=== PATIENT | female | born 1990 | race Caucasian/White ===

== ENCOUNTER 2024-02-28 15:13 | Emergency (ER) | payer BC ==
[2024-02-28] MEDS ORDERED: Zofran 4 MG/2 ML VIAL ONE (15:59)
[2024-02-28] MEDS ORDERED: Sodium Chloride 0.9% 1000 ML 1,000 ML ONE (15:59)
[2024-02-28] MEDS: Sodium Chloride 0.9% 1000 ML 1,000 ML IV STA (16:01)
[2024-02-28] MEDS: Zofran 4 MG/2 ML VIAL IV ONE (16:01)
--- NOTE | 2024-02-28 16:05 | ERPHSYRPT ---
- History of Present Illness Time Seen by Provider: 02/28/24 15:58 Source: patient Exam Limitations: no limitations Patient Subjective Stated Complaint: PT states "I had my daughter here last night for the same thing and I started to vomit and have diarrhea since 11 pm last night." Triage Nursing Assessment: Pt presented alert and oriented X 3, skin pwd. Pt ambulates iwth an upright steady gait, able to speak in clear full sentences. PT vomiting currently. Timing/Duration: today Severity: mild Associated Symptoms: denies symptoms Allergies/Adverse Reactions: No Known Drug Allergies Allergy (Verified 02/28/24 15:28) Home Medications: Vit,Calc78/Iron/Folic [Prenatabs FA Tablet] 1 each PO DAILY 02/28/24 [History] Hx Tetanus, Diphtheria Vaccination/Date Given: No Hx Influenza Vaccination/Date Given: No Hx Pneumococcal Vaccination/Date Given: No Immunizations Up to Date: No Travel Risk - International Travel Have you traveled outside of the country in past 3 weeks: No - Emerging Infectious Disease Are you exhibiting symptoms associated with any current EIDs: Yes Symptoms: Vomitting - Review of Systems Constitutional: No Symptoms Eyes: No Symptoms Ears, Nose, & Throat: No Symptoms Respiratory: Cough Cardiac: No Symptoms Abdominal/Gastrointestinal: No Symptoms Genitourinary Symptoms: No Symptoms Musculoskeletal: No Symptoms - Past Medical History Pertinent Past Medical History: No Neurological History: No Pertinent History ENT History: No Pertinent History Cardiac History: No Pertinent History Respiratory History: No Pertinent History Endocrine Medical History: No Pertinent History Musculoskeletal History: No Pertinent History GI Medical History: No Pertinent History History: No Pertinent History Psycho-Social History: No Pertinent History Female Reproductive Disorders: No Pertinent History - Past Surgical History Past Surgical History: Yes Other Surgical History: right leg - Female History Hx Last Menstrual Period: 09/2023 Hx Now: Yes Gestational Age: 20 weeks - Social History Smoking Status: Never smoker Exposure to second hand smoke: No Drug Use: none - Social Determinants of Health Will the patient participate in the screening: Declined to provide - Nursing Vital Signs Nursing Vital Signs: Initial Vital Signs Temperature 97.8 F 02/28/24 15:22 Pulse Rate 102 H 02/28/24 15:22 Respiratory Rate 20 02/28/24 15:22 Blood Pressure 117/55 02/28/24 15:22 O2 Sat by Pulse Oximetry 100 02/28/24 15:22 Pain Scale Pain Intensity 0 - Physical Exam General Appearance: no apparent distress Eye Exam: PERRL/EOMI Ears, Nose, Throat Exam: normal ENT inspection Neck Exam: normal inspection, non-tender Respiratory Exam: normal breath sounds, chest tenderness Cardiovascular Exam: regular rate/rhythm Gastrointestinal/Abdomen Exam: soft, normal bowel sounds SpO2: 100 Ordered Tests: Active Orders 24 hr Category Date Time Status IV Insertion STAT Care 02/28/24 15:38 Active CMP Stat Lab 02/28/24 16:02 Completed Medication Summary Discontinued Medications Generic Name Dose Route Start Last Admin Trade Name Rishi PRN Reason Stop Dose Admin Sodium Chloride 1,000 mls @ 999 mls/hr 02/28/24 15:57 02/28/24 16:01 Sodium Chloride 0.9% 1000 Ml IV 02/28/24 16:57 999 mls/hr .Q1H1M STA Administration Sodium Chloride Confirm 02/28/24 15:59 Sodium Chloride 0.9% 1000 Ml Administered 02/28/24 16:00 Dose 1,000 mls @ ud .ROUTE .STK-MED ONE Ondansetron HCl 4 mg 02/28/24 15:57 02/28/24 16:01 Ondansetron Hcl 4 Mg/2 Ml Vial IV 02/28/24 15:58 4 mg STAT ONE Administration Ondansetron HCl Confirm 02/28/24 15:59 Ondansetron Hcl 4 Mg/2 Ml Vial Administered 02/28/24 16:00 Dose 4 mg .ROUTE .STK-MED ONE Lab/Rad Data: Laboratory Result Diagrams 02/28/24 16:02 Laboratory Results 02/28/24 Range/Units 16:02 Sodium 135 (135-145) mmol/L Potassium 3.6 (3.5-5.1) mmol/L Chloride 105 (98-107) mmol/L Carbon Dioxide 19 L (22-30) mmol/L Anion Gap 15.1 H (5-15) MEQ/L BUN 12 (7-17) mg/dL Creatinine 0.64 (0.52-1.04) mg/dL Estimated GFR 118.9 ML/MIN Glucose 97 (74-106) mg/dL Calcium 9.7 (8.4-10.2) mg/dL Total Bilirubin 1.00 (0.2-1.3) mg/dL AST 27 (14-36) U/L ALT 19 (0-35) U/L Alkaline Phosphatase 60 (38-126) U/L Serum Total Protein 7.5 (6.3-8.2) g/dL Albumin 4.3 (3.5-5.0) g/dL - Progress Progress Note: 02/28/24 17:06 Cough patient was seen and evaluated for nausea and vomiting she was given IV fluids and IV antiemetics electrolytes were obtained, these were reviewed. Louisa ent was updated with the results she was informed of the need to maintain a clear liquid diet and advance slowly she will be discharged home with Zofran. She is to follow-up with her primary care provider and [facility], she denies any other complaints at the time of discharge and feels comfortable going home Medical Desision Making - Discussion of managment Agreed on:: need for follow-up Will see patient: In office - Departure Departure Disposition: Home Clinical Impression: Nausea, Dehydration Condition: Stable Critical Care Time: No Referrals: DOCTOR,NO FAMILY [Primary Care Provider] - Follow up/PCP as directed Prescriptions: Ondansetron ODT 4 MG [Zofran Odt 4 mg] 4 mg PO Q6H PRN PRN #10 tablet PRN Reason: Vomiting
[2024-02-28 16:53] LABS: ALBUMIN 4.3 g/dL (3.5-5.0); ANION GAP 15.1 MEQ/L (5-15); Calcium 9.7 mg/dL (8.4-10.2); Creatinine 1 0.64 mg/dL (0.52-1.04); EST GLOMERULAR FILTRATION RATE 118.9 ML/MIN; Potassium 3.6 mmol/L (3.5-5.1); Total Protein 7.5 g/dL (6.3-8.2)
[2024-02-28 17:13] VITALS: O2SAT 100
[2024-02-28 17:14] VITALS: BP 118/65; PULSE 88; RESP 18; TEMP 97.5
== END 2024-02-28 17:30 | disposition home or self-care (01) ==
LOC: ED 15:13
DX: R11.2 Nausea with vomiting, unspecified (principal); R19.7 Diarrhea, unspecified; E86.0 Dehydration
CPT/HCPCS: 36415; 80053; 96360; 96374; 99284; J2405